=== PATIENT | female | born 1930 | race Caucasian/White ===

== ENCOUNTER → 2017-03-14 | Outpatient (CLI) | payer MEDICARE, OTHER ==
--- NOTE | 2017-03-14 14:35 | PCVCIMAG ---
APPROVED REPORT Study performed: 03/14/2017 09:46:32 EXAM: Comprehensive 2D, Doppler, and color-flow Echocardiogram Patient Location: Echo lab Status: routine BSA: 1.63 HR: 67 bpmBP: 136/72 mmHg Rhythm: Pacemaker Other Information Study Quality: Technically Difficult Indications Pacemaker Cardiomyopathy ASYMETRIC SEPTAL HYPERTROPHY,ICD 2D Dimensions LVEF(%): 86.48 (>50%) IVSd: 22.41 (7-11mm)LVOT Diam: 18.36 (18-24mm) LVDd: 38.80 mm PWd: 9.16 (7-11mm)Ascending Ao: 28.65 (22-36mm) LVDs: 17.32 (25-40mm) Left Atrium: 37.73 (27-40mm) Aortic Root: 21.97 mm LV Single Plane 4CH: 68.59 % Loza's LVEF: 86.48 % Volumes Left Atrial Volume (Systole) Single Plane 4CH: 37.40 mLSingle Plane 2CH: 48.72 mL Biplane LA Volume: 43.00 mLLA ESV Index: 27.00 mL/m2 Aortic Valve AoV Peak Dani.: 1.25 m/s AO Peak Gr.: 6.21 mmHgLVOT Max P.97 mmHg LVOT Max V: 0.86 m/s MANFRED Vmax: 1.83 cm2 Mitral Valve E/A Ratio: 0.8 MV Decel. Time: 275.45 ms MV E Max Dani.: 0.44 m/s MV A Dani.: 0.55 m/s MV Max Dani.: 5.82 m/s MV Mean Dani.: 4.42 m/s MV PHT: 51.62 ms MVA (PHT): 4.26 cm2 IVRT: 110.73 ms TDI E/Lateral E': 7.33E/Medial E': 8.80 Medial E' Dani.: 0.05 m/s Lateral E' Dani.: 0.06 m/s Pulmonary Valve PV Peak Dani.: 0.81 m/sPV Peak Gr.: 2.62 mmHg Tricuspid Valve TR Peak Dani.: 2.94 m/s TR Peak Gr.: 34.63 mmHg TV Vmax: 0.65 m/sPA Pressure: 42.00 mmHg Left Ventricle The left ventricle is normal size. There is normal LV segmental wall motion. Aasymetric septal hypertrophy- severe. Apical hypertrophy is present. Mid-cavitary gradient is present with a peak gradient 97 mmHg and 4.9 m/s velocity. Echo findings are consistent with hypertrophic cardiomyopathy. Left ventricular systolic function is normal. The left ventricular ejection fraction is within the normal range. LVEF is 65-70%. Grade I - abnormal relaxation pattern. Right Ventricle The right ventricle is normal size. The right ventricular systolic function is normal. Atria The left atrium size is normal. The right atrium size is normal. Aortic Valve The aortic valve is normal in structure. No aortic regurgitation is present. There is no aortic valvular stenosis. Mitral Valve The mitral valve is normal in structure. Mild to moderate mitral regurgitation. No evidence of mitral valve stenosis. Tricuspid Valve The tricuspid valve is normal in structure. Mild tricuspid regurgitation with a PA pressure of 42 mmHg.. Pulmonic Valve The pulmonary valve is normal in structure. There is no pulmonic valvular regurgitation. Great Vessels The aortic root is normal in size. The ascending aorta is normal in size. IVC is normal in size and collapses with >50% inspiration Pericardium There is no pericardial effusion. There is no pleural effusion. <Conclusion> Left ventricular systolic function is normal. The left ventricular ejection fraction is within the normal range. Aasymetric septal hypertrophy- severe. Apical hypertrophy is present. Mid-cavitary gradient is present with a peak gradient 97 mmHg and 4.9 m/s velocity. Echo findings are consistent with hypertrophic cardiomyopathy. Grade I - abnormal relaxation pattern. The right ventricle is normal size. The left atrium size is normal. The left atrium size is normal. No aortic regurgitation is present. Mild to moderate mitral regurgitation. Mild tricuspid regurgitation with a PA pressure of 42 mmHg.. There is no pericardial effusion.
== END | disposition home or self-care (01) ==
LOC: PCVCIMAG 09:14
PROVIDERS: ATTEND Internal Medicine Cardiovascular Disease
DX: I08.1 Rheumatic disorders of both mitral and tricuspid valves (principal); I42.2 Other hypertrophic cardiomyopathy; R94.31 Abnormal electrocardiogram [ECG] [EKG]; Z95.810 Presence of automatic (implantable) cardiac defibrillator; Z79.82 Long term (current) use of aspirin
CPT/HCPCS: 80061; 93306; G0463

== ENCOUNTER → 2017-11-28 | Outpatient (CLI) | payer MEDICARE, OTHER | END | disposition home or self-care (01) | LOC: PCVCCLINIC 09:37 | DX: E78.00 Pure hypercholesterolemia, unspecified (principal); I42.9 Cardiomyopathy, unspecified; I51.7 Cardiomegaly; I42.2 Other hypertrophic cardiomyopathy; Z95.810 Presence of automatic (implantable) cardiac defibrillator; Z79.82 Long term (current) use of aspirin; Z79.899 Other long term (current) drug therapy | CPT/HCPCS: 80061; 93005; G0463 ==

== ENCOUNTER → 2018-11-27 | Outpatient (CLI) | payer MEDICARE, OTHER ==
--- NOTE | 2018-11-27 12:20 | PCVCIMAG ---
APPROVED REPORT Study performed: 11/27/2018 09:50:22 EXAM: Comprehensive 2D, Doppler, and color-flow Echocardiogram Patient Location: Echo lab Room #: [id number]: routine BSA: 1.63 HR: 61 bpmBP: 132/68 mmHg Rhythm: NSR Other Information Study Quality: Good Risk Factors: Cardiac Risk Factors: HTN, Hyperlipidemia Indications Cardiomyopathy AICD Hypertrophic Cardiomyopathy 2D Dimensions IVSd: 2.20 (7-11mm)LVOT Diam: 18.00 (18-24mm) LVDd: 45.19 mm PWd: 12.84 (7-11mm)Ascending Ao: 32.50 (22-36mm) LVDs: 26.55 (25-40mm) Left Atrium: 46.37 (27-40mm) Aortic Root: 28.52 mm LV Single Plane 4CH: 63.77 % LV Single Plane 2CH: 63.74 % Biplane EF: 63.1 % Volumes Left Atrial Volume (Systole) Single Plane 4CH: 88.65 mLSingle Plane 2CH: 86.52 mL LA ESV Index: 57.00 mL/m2 Aortic Valve AoV Peak Dani.: 1.37 m/s AO Peak Gr.: 7.50 mmHgLVOT Max P.88 mmHg LVOT Max V: 0.85 m/s MANFRED Vmax: 1.57 cm2 Mitral Valve E/A Ratio: 1.4 MV Decel. Time: 301.42 ms MV E Max Dani.: 0.76 m/s MV A Dani.: 0.55 m/s IVRT: 76.12 ms TDI E/Lateral E': 15.20E/Medial E': 19.00 Medial E' Dani.: 0.04 m/s Lateral E' Dani.: 0.05 m/s Pulmonary Valve PV Peak Dani.: 0.73 m/sPV Peak Gr.: 2.14 mmHg Pulmonary Vein P Vein S: 0.41 m/sP Vein A: 0.24 m/s P Vein D: 0.48 m/sP Vein A Dur.: 121.1 msec P Vein S/D Ratio: 0.85 Tricuspid Valve TR Peak Dani.: 3.41 m/sRAP Estimate: 7.00 mmHg TR Peak Gr.: 46.55 mmHg PA Pressure: 54.00 mmHg Left Ventricle The left ventricle is normal size. There is normal LV segmental wall motion. Severe asymetric septal hypertrophy. Apical hypertrophy is present. Mid-cavitary gradient is present with a peak gradient of 64 mmHG and 4.0 m/s velocity. The left ventricular systolic function is normal. The left ventricular ejection fraction is within the normal range. LVEF is 65-70%. The left ventricular diastolic function is normal. Right Ventricle The right ventricle is normal size. The right ventricular systolic function is normal. Atria Left atrium is severely dilated. Right atrium is moderately dilated. Aortic Valve The aortic valve is normal in structure. Trace aortic regurgitation. There is no aortic valvular stenosis. Mitral Valve The mitral valve is normal in structure. Mild to moderate mitral regurgitation. No evidence of mitral valve stenosis. Tricuspid Valve The tricuspid valve is normal in structure. Mild to moderate tricuspid regurgitation. Pulmonary artery pressure is 54 mmHg. Moderate pulmonary hypertension. Pulmonic Valve The pulmonary valve is normal in structure. Mild pulmonic regurgitation. Great Vessels The aortic root is normal in size. IVC is normal in size and collapses >50% with inspiration. Pericardium There is no pericardial effusion. <Conclusion> The left ventricle is normal size. Severe asymetric septal hypertrophy. Apical hypertrophy is present. Mid-cavitary gradient is present with a peak gradient of 64 mmHG and 4.0 m/s velocity. LVEF is 65-70%. The left ventricular diastolic function is normal. The right ventricle is normal size. Left atrium is severely dilated. Right atrium is moderately dilated. Trace aortic regurgitation. Mild to moderate mitral regurgitation. Mild to moderate tricuspid regurgitation. Pulmonary artery pressure is 54 mmHg. Moderate pulmonary hypertension. The aortic root is normal in size. There is no pericardial effusion.
== END | disposition home or self-care (01) ==
LOC: PCVCIMAG 09:29
PROVIDERS: ATTEND Internal Medicine Cardiovascular Disease
DX: I08.1 Rheumatic disorders of both mitral and tricuspid valves (principal); I42.2 Other hypertrophic cardiomyopathy; E78.00 Pure hypercholesterolemia, unspecified; I27.20 Pulmonary hypertension, unspecified; E78.5 Hyperlipidemia, unspecified; Z79.82 Long term (current) use of aspirin
CPT/HCPCS: 36415; 80061; 93283; 93306; G0463